=== PATIENT | male | born 1955 | race Caucasian/White ===

== ENCOUNTER → 2019-01-31 08:25 | Outpatient (CLI) | payer BC ==
--- NOTE | 2019-02-05 13:56 | EC ---
PATIENT:SARABJIT HODGE DATE OF SERVICE: 01/31/19 SEX: M MEDICAL RECORD: [id number] DATE OF : 53 LOCATION:[facility] AGE OF PATIENT: 63 ADMISSION DATE: 01/31/19 REFERRING PHYSICIAN: INTERPRETING PHYSICIAN: FAIZA LOPEZ MD ECHOCARDIOGRAM REPORT ECHO CHARGES 4 ECHO COMPLETE Date: 01/31/19 CLINICAL DIAGNOSIS: MURMUR/ABNORMAL EKG H/O HTN/CAD ECHOCARDIOGRAPHIC MEASUREMENTS (adult normal given) AC root (d.<3.7cm) 3.7 cm LV Septum d (<1.2 cm> 0.9 cm Valve Excursion 1.6 cm LV Septum (systole) 1.3 cm Left Atria (s.<4.0cm> 4.1 cm LVPW d(<1.2cm) 1.1 cm RV (d.<2.3cm) 2.9 cm LVPW (sytole) 1.7 cm LV diastole(<5.6CM) 5.7 cm MV E-F(>70mm/sec) cm LV systole 3.9 cm LVOT Diameter 2.0 cm MV exc.(>10mm) cm Est.ejection fraction (50-75%) % DOPPLER: LVIT cm/sec A 69.0 cm/sec E 78.0 cm/sec LA cm/sec RVSP 28.0 mmHg LVOT 97.0 cm/sec AOP1/2T m/s Asc. Ao 159 cm/sec RVOT 57.0 cm/sec RA cm/sec PA 85.0 cm/sec AV Gradient Peak 10.1 mmHg AV Mean 6.1 mmHg AV Area 2.1 cm MV Gradient Peak 3.9 mmHg MV Mean 1.1 mmHg MV Area cm COMMENTS: OP - HC Director Of Dementia Operations: 1 [place] Licensed Bondsman: 3 Dr. Willson TAPE# PACS Pericardial Effusion N DATE OF SERVICE: Adequate 2D, color flow imaging, spectral Doppler, and M-Mode No LVH. LV internal dimensions are normal. Wall motion is normal. EF is greater than or equal to 55%. Aortic valve is tricuspid. No evidence of stenosis by Doppler interrogation. Left atrium is upper limits of normal to mildly dilated at 4.1 cm. Mitral valve shows no prolapse. Trace MR. Right-sided chambers grossly normal. Trace TR. 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
== END | disposition home or self-care (01) ==
LOC: D.HCCECHO 08:25
PROVIDERS: ATTEND Internal Medicine Interventional Cardiology
DX: R94.31 Abnormal electrocardiogram [ECG] [EKG] (principal)

== ENCOUNTER → 2020-02-05 13:31 | Outpatient (CLI) | payer MEDICARE ==
--- NOTE | ~2020-02-05 | EC ---
PATIENT:SARABJIT HODGE DATE OF SERVICE: 02/05/20 SEX: M MEDICAL RECORD: [id number] DATE OF : 53 [facility] AGE OF PATIENT: 64 ADMISSION DATE: 02/05/20 REFERRING PHYSICIAN: INTERPRETING PHYSICIAN: FAIZA LOPEZ MD ECHOCARDIOGRAM REPORT ECHO CHARGES 4 ECHO COMPLETE Date: 02/05/20 CLINICAL DIAGNOSIS: CAD/ASSESS EF AND VALVES ECHOCARDIOGRAPHIC MEASUREMENTS (adult normal given) AC root (d.<3.7cm) 3.7 cm LV Septum d (<1.2 cm> 1.5 cm Valve Excursion 1.7 cm LV Septum (systole) 2.0 cm Left Atria (s.<4.0cm> 3.5 cm LVPW d(<1.2cm) 1.4 cm RV (d.<2.3cm) 4.6 cm LVPW (sytole) 2.0 cm LV diastole(<5.6CM) 3.7 cm MV E-F(>70mm/sec) cm LV systole 2.2 cm LVOT Diameter 1.6 cm MV exc.(>10mm) 1.6 cm Est.ejection fraction (50-75%) % DOPPLER: LVIT cm/sec A 82.0 cm/sec E 52.0 cm/sec LA cm/sec RVSP 22 mmHg LVOT 95 cm/sec AOP1/2T m/s Asc. Ao 128 cm/sec RVOT 93 cm/sec RA cm/sec PA 129 cm/sec AV Gradient Peak 6.50 mmHg AV Mean 3.67 mmHg AV Area 1.7 cm MV Gradient Peak 3.51 mmHg MV Mean 0.82 mmHg MV Area cm COMMENTS: [employer] Lead: 2 AKUA MASSEY Machine Hand: 3 Dr. Willson TAPE# PACS Pericardial Effusion N DATE OF SERVICE: Adequate 2D, color-flow imaging, spectral Doppler, and M-Mode LVH is present. LV internal dimension is normal. Wall motion is normal. EF is greater than or equal to 55%. Aortic valve tricuspid. No evidence of stenosis by Doppler interrogation. Left atrium is normal at 3.5 cm. Mitral valve shows no prolapse. Trace MR. Right-sided chambers are grossly normal. Mild TR. 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
== END | disposition home or self-care (01) ==
LOC: D.HCCECHO 13:31
PROVIDERS: ATTEND Internal Medicine Interventional Cardiology
DX: I25.10 Atherosclerotic heart disease of native coronary artery without angina pectoris (principal)

== ENCOUNTER → 2020-07-30 | Emergency (ER) | payer MEDICARE ==
[~2020-07-30] VITALS: Ht 167.6 cm; Wt 94.5 kg
[~2020-07-30] MED LIST: AUGMENTIN 875-11 TAB PO; ISOSORBIDE DINI30 MG PO; MECLIZINE HCL25 MG PO; VALIUM5 MG PO; ZOFRAN ODT4 MG/UDTAB PO
[2020-07-30 12:40] VITALS: BP 108/65; Ht 167.6 cm; Wt 94.5 kg
[2020-07-30 13:05] LABS: BASOPHILS 0.3 % (0-2); EOSINOPHILS 1.3 % (0-7); HEMOGLOBIN 15.1 g/dL (13.5-17.5); IMMATURE GRANULOCYTES 0.3 % (0-5); LYMPHOCYTES 7.6 % (15-50); MCH 30.3 pg (26.0-34.0); MCHC 35.1 g/dL (31.0-37.0); MCV 86.3 fL (80.0-100.0); MEAN PLATELET VOLUME 9.9 fL (7.4-10.4); MONOCYTES 4.9 % (2-11); NEUTROPHIL ABS# 13.52 10x3/uL (1.78-5.38); NEUTROPHILS 85.6 % (40-80); PLATELET COUNT 201 10x3/uL (130-400); RBC 4.98 10x6/uL (4.20-6.10); RDW 12.4 % (11.5-14.5); WBC 15.8 10x3/uL (4.8-10.8)
[2020-07-30 13:14] LABS: CALC OSMOLALITY 281 mosm/kg (275-300); CALCIUM 8.9 mg/dL (8.5-10.1); CARBON DIOXIDE 28.4 mmol/L (21.0-32.0); CHLORIDE - SERUM 99 mmol/L (98-107); CREATININE - SERUM 1.1 mg/dL (0.6-1.3); GLUCOSE 181 mg/dL (74-106); POTASSIUM - SERUM 3.8 mmol/L (3.5-5.1); SODIUM 138 mmol/L (136-145); UREA NITROGEN 15 mg/dL (7-18); eGFR NON AFRICAN AMERICAN 71 mL/min (90-120)
[2020-07-30 13:27] LABS: ALBUMIN 4.1 g/dL (3.4-5.0); ALKALINE PHOSPHATASE 72 U/L (30-120); ALT (SGPT) 48 U/L (10-68); AMYLASE - SERUM 27 U/L (25-115); BILIRUBIN - TOTAL 1.05 mg/dL (0.2-1.3); LIPASE 72 U/L (73-393); PRO BNP 14 pg/mL (0-125); PROTEIN - SERUM 7.3 g/dL (6.4-8.2); TROPONIN-I < 0.017 ng/mL (0.000-0.060)
[2020-07-30 15:47] LABS: BILIRUBIN NEGATIVE (NEGATIVE); KETONE SMALL mg/dL (NEGATIVE); NITRITE NEGATIVE (NEGATIVE); UROBILINOGEN NORMAL mg/dL (< 2)
== END | disposition home or self-care (01) ==
LOC: D.ER 12:35
PROVIDERS: Family Medicine
DX: R42 Dizziness and giddiness (principal); R11.2 Nausea with vomiting, unspecified; D72.829 Elevated white blood cell count, unspecified